=== PATIENT | male | born 1980 | race Two or more races ===

== ENCOUNTER 2024-10-30 03:48 | Inpatient (IN) | payer MEDICAID, SELFPAY ==
[2024-10-30] VITALS (11 sets, daily range): BP systolic 128–167; BP diastolic 71–100; PULSE 73–112; RESP 14–19; TEMP 36.2–37.1; O2SAT 92–98
--- NOTE | 2024-10-30 04:29 | XR_ITS ---
Examination: CT abdomen with intravenous contrast CT pelvis with intravenous contrast 2-D coronal reconstructions 2-D sagittal reconstructions Date and time of exam:October 30, 2024, 0535 hours INDICATIONS: Onset of rectal pain and tenderness beginning 2 days ago. CTDI: vol (mGy) 10.81 DLP: (mGycm) 803 Technique: Multiple axial sections of the abdomen and pelvis have been obtained. 64 slice high-resolution scanner used. 3 mm axial sections have been obtained, post intravenous injection 60 cc [id number] 2-D sagittal, coronal reconstructions obtained. Low dose protocols were performed. One or more of the following dose reduction techniques were used; automated exposure control, adjustment of the mA and/or KV according to patient size, use of iterative reconstruction technique. Findings: Diffuse fatty infiltration throughout the liver No focal liver or splenic lesions No gallstones No pancreatic or adrenal mass No renal or ureteral calculi, no hydronephrosis No pericecal inflammatory changes No bowel obstruction Bladder intact No prostatomegaly 24 x 20 x 27 mm midline anal abscess IMPRESSION: 24 x 20 x 27 mm midline perianal abscess
--- NOTE | 2024-10-30 04:29 | PD.EDRME ---
Rapid Medical Screening Exam RME Arrival date/time: 10/30/24 03:48 44M with no significant PMH presents to ED with several days of worsening rectal pain. No blood in stool. Chief Complaint: General Adult/Misc Complain Vital signs: Vital Signs Temperature 98.1 F 10/30/24 03:53 Pulse Rate 112 H 10/30/24 03:53 Respiratory Rate 18 10/30/24 03:53 Blood Pressure 167/79 H 10/30/24 03:53 Pulse Oximetry (%) 95 10/30/24 03:53
[2024-10-30 04:45] LABS: Lactate (Lactic Acid) 1.3 mMol/L (0.4-2.0)
[2024-10-30 04:49] LABS: Sed Rate (ESR) 16 mm/hr (0-15)
[2024-10-30 04:51] LABS: Basophils # (Auto) 0.0 Thou/mm3 (0.0-0.2); Basophils % (Auto) 0 % (0-2.5); Eosinophils # (Auto) 0.1 Thou/mm3 (0.0-0.5); Eosinophils % (Auto) 1 % (0-10); Hematocrit 39.1 % (41.0-53.0); Hemoglobin 13.6 g/dL (13.5-16.0); Immature Granulocytes Auto 0.02 Thou/mm3 (0.00-0.00); Lymphocytes # (Auto) 2.2 Thou/mm3 (1.0-4.8); Lymphocytes % (Auto) 22 % (10-50); Mean Corpuscular HGB Conc 34.8 g/dl (31.0-37.0); Mean Corpuscular Hemoglobin 28.8 pg (25.0-35.0); Mean Corpuscular Volume 83 fL (80-100); Monocytes # (Auto) 0.5 Thou/mm3 (0.0-0.8); Monocytes % (Auto) 5 % (0-12); Neutrophils # (Auto) 7.1 Thou/mm3 (1.8-7.7); Neutrophils % (Auto) 72 % (37-80); Nucleated Red Blood Cell # 0.00 Thou/mm3 (0.00-0.00); Nucleated Red Blood Cell % 0 /100 WBC (0); Platelet Count 242 Thou/mm3 (140-440); RDW Standard Deviation 42.4 fL (35.1-43.9); Red Blood Count 4.72 Miln/mm3 (4.50-5.90); White Blood Count 9.9 Thou/mm3 (3.8-10.6)
[2024-10-30 05:19] LABS: Alanine Aminotransferase 36 U/L (10-49); Albumin, Serum 4.6 gm/dL (3.5-5.0); Albumin/Globulin Ratio 1.8 (1.2-2.2); Alkaline Phosphatase 126 U/L (46-116); Anion Gap 12 (7-16); Aspartate Amino Transferase 29 U/L (0-34); BUN/Creatinine Ratio 11 Ratio (12-20); Bilirubin,Total 0.3 mg/dL (0.3-1.2); Blood Urea Nitrogen 10 mg/dL (9-23); C-Reactive Protein 1.6 mg/dL (0.0-0.9); Calcium 8.9 mg/dL (8.3-10.6); Calcium (Corrected) 8.9 mg/dL (8.5-10.1); Carbon Dioxide 23.0 mMol/L (20.0-31.0); Chloride 105 mMol/L (98-107); Creatinine (Component) 0.9 mg/dL (0.6-1.3); Globulin 2.6 gm/dL (2.3-3.5); Glucose 127 mg/dL (74-106); Osmolality,Calculated 280 (275-295); Potassium 3.7 mMol/L (3.4-5.1); Procalcitonin 0.04 ng/ml (0.0-0.49); Sodium 140 mMol/L (136-145); Total Protein 7.2 gm/dL (5.7-8.2); eGFR > 60 See Note
--- NOTE | 2024-10-30 06:02 | PRELIM_ITS ---
CT scan of the abdomen and pelvis with intravenous contrast (axial sections with sagittal and coronal reformats); October 30, 2024 at 0532 hours Clinical History: Rectal pain and tenderness Comparison: No prior study is available for comparison. Findings: The lung bases are clear. The liver, gallbladder, adrenal glands, spleen, pancreas and kidneys are unremarkable. The appendix is not visualized; however, there is no evidence of inflammatory process in the right lower quadrant to suggest appendicitis. The urinary bladder is normal. No free intraperitoneal air or fluid. Bowel caliber is normal. The abdominal wall is unremarkable. There is a posterior midline perianal fluid collection, measuring 2.5 x 2.0 x 4.2 cm. Impression: Perianal abscess. Discussion Details: Results verbally communicated to : Dr. Will at 05:53 AM 10/30/2024 Report Electronically Signed By: Eric Motta 10/30/2024 6:02:13 AM [EST]
[2024-10-30 06:46] LABS: Glucose Estimated Average 140 mg/dL (80-131); Hemoglobin A1C 6.5 % Hgb (4.8-6.0)
--- NOTE | 2024-10-30 07:16 | PD.EDADULT ---
ED General RME/HPI General Chief complaint: General Adult/Misc Complain Stated complaint: RECTAL PAIN Time Seen by Provider: 10/30/24 06:01 Arrival date/time: 10/30/24 03:48 44-year-old male with no significant medical problems presents to the emergency department today for complaint of a 2-day history of rectal pain which is worsening patient reports no blood in stool. Patient reports no fever nausea or vomiting. Limitations: no limitations RME / HPI RME / HPI narrative: 10/30/24 03:48 44M with no significant PMH presents to ED with several days of worsening rectal pain. No blood in stool. Review of Systems Review of Systems Systems Reviewed: All systems reviewed, normal except as documented Constitutional Constitutional: Reports system reviewed and no additional complaints, except as documented, Denies fever(s) and Denies headache(s) Eyes Eyes: Reports system reviewed and no additional complaints, except as documented and Denies blurry vision ENT Ears, Nose, Mouth, and Throat: Reports system reviewed and no additional complaints, except as documented, Denies headache(s), Denies nasal congestion and Denies nasal discharge Cardiovascular Cardiovascular: Reports system reviewed and no additional complaints, except as documented, Denies chest pain and Denies dyspnea Respiratory Respiratory: Reports system reviewed and no additional complaints, except as documented, Denies chest congestion, Denies cough and Denies dyspnea Gastrointestinal Gastrointestinal: Reports system reviewed and no additional complaints, except as documented, Denies abdominal pain and Reports other (Rectal pain) Integumentary/Breasts Skin/Breast: Reports system reviewed and no additional complaints, except as documented and Denies rash Neurologic Neurologic: Reports system reviewed and no additional complaints, except as documented, Reports as per HPI and Denies headache(s) Past Medical History Past Medical History CARDIAC: Positive Cardiac Disorders and Hypertension; Negative Congestive Heart Failure RESPIRATORY: Negative Chronic Obstructive Pulmonary Disease (COPD) or Asthma GENITOURINARY: Negative Renal Disease ENDOCRINE: Negative Diabetes Mellitus Type 1 or Diabetes Mellitus Type 2 HEMATOLOGIC: Negative Sickle Cell Disease Social History SMOKING STATUS: Never smoker ED Exam General Limitations: Present no limitations General appearance: Present alert and in no apparent distress Head Head exam: Present atraumatic, normocephalic and normal inspection Eye Eye exam: Present normal appearance, PERRL and EOMI; Absent conjunctival injection ENT ENT exam: Present normal exam, normal oropharynx and mucous membranes moist Neck Neck exam: Present normal inspection, full ROM and trachea midline Chest Chest inspection: Present normal inspection and symmetric chest wall rise Respiratory Respiratory exam: Present normal lung sounds bilaterally Cardiovascular Cardiovascular exam: Present regular rate, normal rhythm and normal heart sounds Abdominal Exam Abdominal exam: Present soft and normal bowel sounds; Absent distention, tenderness, guarding, rebound or rigidity Rectal Exam Rectal exam: Present normal inspection and tenderness; Absent heme (-) stool, heme (+) stool, black stool or hemorrhoids Extremities Exam Extremities exam: Present normal inspection and full ROM Back Exam Back exam: Present normal inspection and full ROM Neurological Exam Neurological exam: Present alert, oriented X3 and CN II-XII intact Psychiatric Psychiatric exam: Present normal affect and normal mood Skin Skin exam: Present warm, dry, intact and normal color Course Quality Measures none Orders Category Date Time Status CT Screening NOW Care 10/30/24 04:29 Active Insert IV NOW Care 10/30/24 04:29 Active NPO NOW Care 10/30/24 07:21 Active Consult to General Surgery Stat Cons 10/30/24 07:20 Ordered Diet NPO (NOW) Diet 10/30/24 07:[address] abdomen pelvis w con Stat Exams 10/30/24 04:29 Taken A1C [Glycohemoglobin w (eAG)] Stat Lab 10/30/24 04:35 Completed CBC Stat Lab 10/30/24 04:35 Completed CMP [Comprehensive Metabolic Panel] Stat Lab 10/30/24 04:35 Completed CRP [C-Reactive Protein] Stat Lab 10/30/24 04:35 Completed ESR [Sed Rate (ESR)] Stat Lab 10/30/24 04:35 Completed Lactate (Lactic Acid) Stat Lab 10/30/24 04:35 Completed Procalcitonin Stat Lab 10/30/24 04:35 Completed cefTRIAXone/D5w 1gm IV premix [Rocephin/D5w 1gm IV Med 10/30/24 07:20 Pending premix] 1 gm in 50 ml IV X1 metroNIDAZOLE/NS 500 MG IVPB [Flagyl 500 mg IV] Med 10/30/24 07:21 Pending 500 mg in 100 ml IV NOW Vital Signs Vital signs: Vital Signs Temperature 98.1 F 10/30/24 03:53 Pulse Rate 112 H 10/30/24 03:53 Respiratory Rate 18 10/30/24 03:53 Blood Pressure 167/79 H 10/30/24 03:53 Pulse Oximetry (%) 95 10/30/24 03:53 O2 saturation 95% room air within normal limits Discharge Plan Plan Patient Disposition: Admit Acute Care w/in Hospital Discharge Disposition comment: Stable Problem List Clinical Impression: Abscess, perianal, Pain, rectal Patient/Caregiver Discharge Instructions Print Language: [place] Stand Alone Forms: Joy Award Info., Patient Portal Info Letter PA/REVENUE DIRECTOR Supervising Physician PA/REVENUE DIRECTOR Supervising Physician: Dr ngo [facility] Narrative [facility] hospital course: 44-year-old male with no significant medical problems presents to the emergency department today for complaint of a 2-day history of rectal pain which is worsening patient reports no blood in stool. Patient reports no fever nausea or vomiting. On exam patient well-appearing patient does not appear ill or toxic no acute distress Imaging obtained CT scan shows posterior midline perianal fluid collection measuring 2.5 x 2.0 x 4.2 cm consistent with perianal abscess A1c mildly elevated 6.5 average blood sugar 140 Patient given IV medications Consultation: I spoke with my attending physician who feels the patient should be admitted Consultation: Spoke with general surgeon who states he will consult 0 7:30 AM spoke with hospitalist team patient admitted to the hospital with no distress Clinical Information Provided by patient Medical Records Reviewed None Meds/Rx Considered, not Ordered Describe details: Given Labs/Rad/Tests considered, not Ordered Describe details: Obtained Chronic Illness/Social Conditions which may negatively complicate care or outcome(s)-explain: None or not applicable EKG EKG not done Lab Interpretation Labs: interpreted by me Imaging Imaging interpretation: see narrative above Radiology reports / interpretation(s): Radiology report reviewed by me patient appears of abscess perianal 2.5 x 2.0 x 4.2 cm Medication Administration(s) Medication Administration History Ceftriaxone Sodium/Dextrose (Rocephin/D5w 1gm Iv Premix) 1 gm in 50 mls @ 100 mls/hr IV X1 ONE Stop: 10/30/24 07:49 Metronidazole (Flagyl 500 Mg Iv) 500 mg in 100 mls @ 200 mls/hr IV NOW ONE Stop: 10/30/24 07:50 Given Diagnosis Differential diagnosis: Perineal abscess Most likely dx, and/or detailed dx discussion: Renal abscess Dispositon Disposition: Admit
--- NOTE | 2024-10-30 09:45 | PC.NURSE ---
REPORT GIVEN TO DAHLIA GOMEZ ON MED SURG. PATIENT BELONGINGS COMPLETED, PATIENT TAKEN TO FLOOR VIA WHEELCHAIR.
[2024-10-30] MEDS: metroNIDAZOLE/NS 500 MG IVPB 500 MG/100 ML BAG 200 MG IV (11:07)
--- NOTE | 2024-10-30 12:17 | ESHP_ITS ---
Documentation for date of: 10/30/24 HPI History of Present Illness Chief complaint: Rectal pain for 2 days before admission History of present illness: HPI: A 44-year-old male patient with past medical history of hypertension on losartan, presented to the ED due to acute rectal pain for the past 2 days. He reported that the pain started as a mild pain however it continued to worsen over the past 2 days. His reported during that time he was very uncomfortable and was unable to sit still in 1 position. Despite the pain patient continued to work however his pain continued to worsen. He denied any constipation, difficulty defecating, fever or chills, and denied any bleeding per rectum. Patient has never had such symptoms in the past. Home medications: Losartan ED course: In the ED patient was found to have blood pressure of 167/79, pulse rate of 112, normal temperature. CBC was nonsignificant, ESR was elevated at 16, CMP showed potassium of 3.7, serum creatinine 0.1, blood glucose 127, lactic acid was 1.3, CRP 1.6, and A1c is 6.5. Patient was given metronidazole and ceftriaxone at the ED. General surgery was consulted and he recommended to admit the patient for surgery. PMH: As above Social hx: Alcohol: Denies Tobacco: Denied Illicit drugs: Denied Allergies: Penicillins Review of Systems Review of Systems Systems Reviewed: All systems reviewed, normal except as documented Exam Vital Signs Temp Pulse Resp BP Pulse Ox O2 Del Method 98.3 F 89 18 157/100 H 95 Room Air 10/30/24 12:00 10/30/24 12:00 10/30/24 12:00 10/30/24 12:00 10/30/24 12:00 10/30/24 12:00 Narrative Exam GEN: AOx3, able to speak full sentences HEENT: NC/AC, PERRLA, oral mucosa moist, neck supple CVS: RRR, S1-S2 present, no murmurs appreciated RESP: CTAB GI: soft,non distended, non tender, NBS MSK: able to move all 4 limbs, no lower extremity edema : Redness and tenderness on the posterior end of the range, no visible discharge, unable to assess fluctuation due to the pain. SKIN: warm and dry TRUST OPERATIONS ASSISTANT: CN II-XII and Sensation grossly intact. Results: Labs 10/30/24 04:35 10/30/24 04:35 Labs: Short CBC 10/30/24 Range/Units 04:35 WBC 9.9 (3.8-10.6) Thou/mm3 Hgb 13.6 (13.5-16.0) g/dL Hct 39.1 L (41.0-53.0) % Plt Count 242 (140-440) Thou/mm3 BMP 10/30/24 04:35 Sodium 140 Potassium 3.7 Chloride 105 Carbon Dioxide 23.0 BUN 10 Creatinine 0.9 Glucose 127 H Calcium 8.9 Liver Function 10/30/24 Range/Units 04:35 Total Bilirubin 0.3 (0.3-1.2) mg/dL AST 29 (0-34) U/L ALT 36 (10-49) U/L Alkaline Phosphatase 126 H (46-116) U/L Albumin 4.6 (3.5-5.0) gm/dL Quality Measures Quality Measures none Medications Home Medications and Allergies Home Medications ?Medication ?Instructions ?Recorded ?Confirmed ?Type losartan 25 mg tablet 25 mg PO QDAY 10/30/2410/30 History Allergies Allergy/AdvReac Type Severity Reaction Status Date / Time Penicillins Allergy Intermediate Rash Verified 10/30/24 08:59 Visit Medications Dextrose (Dextrose 50%-Water Inj 50 Ml Syringe) 25 ml IV Q15MIN PRN PRN Reason: BG 50-70 responsive npo pt Stop: 11/29/24 09:44 Dextrose (Dextrose 50%-Water Inj 50 Ml Syringe) 50 ml IV Q15MIN PRN PRN Reason: BG <50 OR BG <70 & pt unresponsive Stop: 11/29/24 09:44 Glucagon (Glucagon Inj 1 Mg Vial) 1 mg IM Q15MIN PRN PRN Reason: BG <70, and no IV access Acetaminophen (Ofirmev Inj) 1,000 mg in 100 mls @ 250 mls/hr IV Q6HR PRN PRN Reason: mild pain 1-3 Stop: 10/31/24 00:23 Insulin Human Lispro (Insulin Lispro (Admelog) 1 Unit/0.01 Ml Unit) 0 unit SC Q6HR [facility]; Protocol Stop: 11/29/24 09:44 Ketorolac Tromethamine (Ketorolac Inj 30 Mg/Ml Vial) 30 mg IVP Q6HR PRN PRN Reason: Pain 4-5 Morphine Sulfate (Morphine Sulf Inj 10 Mg/Ml Vial) 2 mg IVP Q4H PRN PRN Reason: Severe pain 6-10 Stop: 11/04/24 09:41 Discontinued Medications Ceftriaxone Sodium/Dextrose (Rocephin/D5w 1gm Iv Premix) 1 gm in 50 mls @ 100 mls/hr IV X1 ONE Stop: 10/30/24 10:14 Metronidazole (Flagyl 500 Mg Iv) 500 mg in 100 mls @ 200 mls/hr IV NOW ONE Stop: 10/30/24 10:29 Last Admin: 10/30/24 11:07 Dose: 200 mls/hr Acetaminophen (Ofirmev Inj) 1,000 mg in 100 mls @ 250 mls/hr IV Q6HR PRN PRN Reason: mild pain 1-4 Stop: 10/31/24 00:23 Assessment & Plan Plan Summary:A 44-year-old male patient with past medical history of hypertension on losartan, presented to the ED due to acute rectal pain for the past 2 days. He reported that the pain started as a mild pain however it continued to worsen over the past 2 days. Patient was admitted for rectal abscess drainage by neurosurgeon Dr. Key. #Rectal abscess Patient came with persistent rectal pain, progressive, over the past 2 days. On examination redness and tenderness in the posterior interval, ESR 16, WBC within normal limits, CRP was 1.6. CT scan of the abdomen and pelvis showed. 24 x 20 x 27 mm midline perianal abscess. Plan ? Admit patient to MedSurg ? N.p.o. for surgery ? Start patient on ceftriaxone 10/30? ?Neurosurgery recommended stop the patient on clindamycin 900 mg IV every 8 hours. ? Pain management as per protocol ? General Surgery was consulted, recommendations appreciated #Newly diagnosed diabetes mellitus Patient denies any history of diabetes mellitus, today's A1c was 6.5. Plan ? Will patient insulin sliding scale ? Hypoglycemia protocol in place ? Previously dietitian consultation for patient education. #History of hypertension Plan ? Resume home medication [id number] PO qday Hospital Maintenance: FEN: N.p.o. DVT ppx: SCDs GI ppx: Not indicated IV lines: PIV Neal: None Code status: Full code Dispo: MedSurg, anticipate discharge tomorrow - Patient's plan and care discussed with my attending, Dr. Liliane Dimas MD Internal Medicine PGY-3 Attending Provider Attestation/Addendum I have discussed and was present for the essential components of the history, physical examination, diagnosis, and treatment plan with the resident. I agree with the patient's care as documented by the resident and amended herein by me. Fran Momin, DO. Although this document has been carefully reviewed, there may still be some phonetic and other typographical errors. These errors are purely grammatical due to imperfections in the software program and should not be construed in any way to compromise the substance of the patient's medical care during this visit.
[2024-10-30] MEDS: cefTRIAXone/D5w 1gm IV premix 1 GM/50 ML BAG IV (13:36)
--- NOTE | 2024-10-30 14:16 | PD.SURCONS ---
HPI Consult details Consult date: 10/30/24 Reason for consultation narrative: Perirectal pain History of present illness: 44-year-old obese male history of hypertension presenting to the emergency department with history of rectal pain. The symptoms started about 3 days ago. He started noticing some pain in perirectal region that has been getting progressively worse over the past few days. He has also noted some swelling and erythema. He denies drainage or bleeding. He denies having similar symptoms in the past with no history of trauma. Review of Systems Constitutional Constitutional: Denies headache(s) ENT Ears, Nose, Mouth, and Throat: Denies headache(s) Cardiovascular Cardiovascular: Denies chest pain Respiratory Respiratory: Denies cough Gastrointestinal Gastrointestinal: Denies abdominal pain, Denies hematochezia, Denies nausea and Denies vomiting Genitourinary Genitourinary: Denies difficulty urinating Neurologic Neurologic: Denies headache(s) Hematologic/Lymphatic Hematologic/Lymphatic: Denies easy bleeding and Denies easy bruising Past Medical History Surgical History OTHER SURGICAL HX: Denies any surgeries in the past Social History SMOKING STATUS: Former smoker SUBSTANCE USE: does not use ALCOHOL: Current Meds Home Medications and Allergies Home Medications ?Medication ?Instructions ?Recorded ?Confirmed ?Type losartan 25 mg tablet 25 mg PO QDAY 10/30/24 10/30/24 History Allergies Allergy/AdvReac Type Severity Reaction Status Date / Time Penicillins Allergy Intermediate Rash Verified 10/30/24 08:59 Exam Vital Signs Temp Pulse Resp BP Pulse Ox O2 Del Method 98.3 F 89 18 157/100 H 95 Room Air 10/30/24 12:00 10/30/24 12:00 10/30/24 12:00 10/30/24 12:00 10/30/24 12:10/30/24 12:00 Constitutional Constitutional: no acute distress Routine Abdominal Exam Abdominal: Present soft and normoactive bowel sounds; Absent tenderness or distended Routine Rectal Exam Comments: Cellulitis with tenderness and fluctuance on the posterior aspect of anal verge, no bleeding or drainage at this time Results Results: Laboratory Laboratory results: results reviewed Results: Imaging CT scan - abdomen: report reviewed and image reviewed CT scan - pelvis: report reviewed and image reviewed Assessment & Plan Problem List (1) Abscess, perianal: Status: Acute Plan Will take patient to the operating room for incision and drainage of perirectal abscess. Risks include but not limited to infection, bleeding, injury to sphincter muscles, chronic nonhealing wound, possible developing anal fistula, need for further procedure and or operation, pneumonia and blood clot discussed with the patient via distribution agent. Benefits and alternatives explained to him, all his questions answered, he agreed and consented to proceed with the operation.
--- NOTE | 2024-10-30 15:14 | PD.SUROPNT ---
Date of Procedure 10/30/24 Pre Op Diagnosis Perirectal abscess Post Op Diagnosis Perirectal abscess Procedure Incision and drainage of perirectal abscess Findings Cellulitis with fluctuance over left posterior aspect of anal verge Procedure Description Patient brought into the operating room in supine position. After administration of general tracheal anesthesia, patient was placed in high lithotomy position. His perineal and perineum was prepped and draped in standard surgical manner. He was noted to have cellulitis with fluctuance on the left posterior aspect of anal verge. After administration of local anesthesia an approximately 1 cm cross-shaped incision was made and dissection was deepened soft tissue. Copious amount of purulent drainage encountered, cultures were obtained. The abscess cavity was evacuated. The cavity was then washed and irrigated with Betadine mixed with peroxide and saline and further washed with warm saline. Hemostasis achieved using electrocautery. The cavity was then packed with wet-to-dry dressings. Patient tolerated procedure well. He was placed in supine position and extubated. He was breathing spontaneously and without difficulty and was transferred to postanesthesia care in stable condition. Instruments, needles and sponge counts were reported to be correct x 2. Anesthesia GETA and local Pathology / specimen Other (Cultures from the abscess cavity) Estimated Blood Loss 10 Condition Stable Disposition PACU Surgeon David Chambers MD Surgical Staff Operation Date: 10/30/24 14:45 Case Staff JUNIOR SYSTEMS ANALYST: Jan Soler
--- NOTE | 2024-10-30 15:19 | SUR.PHASEI ---
received pt and report from DAHLIA Leach and FREDDY Hendricks. Pt slightly sedated, vss, dressing to perirectal left with min serosanguinous drainage noted to dressing. IV intact, no s/s of infiltration noted.
--- NOTE | 2024-10-30 15:47 | SUR.PHASEI ---
mod serousanguinous drainage noted to dressing to perirectal area left. pt tolerating ice chips
--- NOTE | 2024-10-30 15:56 | SUR.PHASEI ---
called and spoke to FREDDY Hendricks, BP elevated and at pt's baseline BP. no new orders received. Pt denies any pain or dizziness.,, report given to RN Tiffani
--- NOTE | 2024-10-30 16:00 | SUR.PHASEI ---
report called to soniya Orosco, dressing remains the same
[2024-10-30] MEDS: CLINDAMYCIN 900MG IVPB 900 MG in PRE-MIXED 1 BAG 50 MG IV ×2 (17:06→21:23)
[2024-10-30] MEDS: ZINC SULFATE 220 MG CAPSULE PO (17:13)
[2024-10-30] MEDS: LOSARTAN POTASSIUM 25 MG TABLET PO (18:03)
--- NOTE | 2024-10-30 18:13 | PC.DIETICIAN ---
Dietitian note: Contour Next Ez glucometer was provided. Pt will need Rx order prior to discharge. Thank you
[2024-10-30] MEDS: DOCUSATE SOD 100 MG CAPSULE PO (20:08)
[2024-10-30] MEDS: ASCORBIC ACID 250 MG TABLET 500 MG PO (20:08)
[2024-10-31] VITALS (9 sets, daily range): BP systolic 114–143; BP diastolic 68–82; PULSE 63–88; RESP 15–98; TEMP 36.3–36.5; O2SAT 94–99
[2024-10-31] MEDS: KETOROLAC INJ 30 MG/ML VIAL IVP ×2 (02:38→11:46)
[2024-10-31] MEDS: CLINDAMYCIN 900MG IVPB 900 MG in PRE-MIXED 1 BAG 50 MG IV ×3 (05:10→21:22)
[2024-10-31 06:19] LABS: Basophils # (Auto) 0.0 Thou/mm3 (0.0-0.2); Basophils % (Auto) 0 % (0-2.5); Eosinophils # (Auto) 0.2 Thou/mm3 (0.0-0.5); Eosinophils % (Auto) 2 % (0-10); Hematocrit 36.2 % (41.0-53.0); Hemoglobin 12.1 g/dL (13.5-16.0); Immature Granulocytes Auto 0.02 Thou/mm3 (0.00-0.00); Lymphocytes # (Auto) 2.2 Thou/mm3 (1.0-4.8); Lymphocytes % (Auto) 27 % (10-50); Mean Corpuscular HGB Conc 33.4 g/dl (31.0-37.0); Mean Corpuscular Hemoglobin 28.3 pg (25.0-35.0); Mean Corpuscular Volume 85 fL (80-100); Monocytes # (Auto) 0.5 Thou/mm3 (0.0-0.8); Monocytes % (Auto) 6 % (0-12); Neutrophils # (Auto) 5.3 Thou/mm3 (1.8-7.7); Neutrophils % (Auto) 65 % (37-80); Nucleated Red Blood Cell # 0.00 Thou/mm3 (0.00-0.00); Nucleated Red Blood Cell % 0 /100 WBC (0); Platelet Count 205 Thou/mm3 (140-440); RDW Standard Deviation 43.9 fL (35.1-43.9); Red Blood Count 4.27 Miln/mm3 (4.50-5.90); White Blood Count 8.3 Thou/mm3 (3.8-10.6)
[2024-10-31 07:10] LABS: Alanine Aminotransferase 29 U/L (10-49); Albumin, Serum 3.8 gm/dL (3.5-5.0); Albumin/Globulin Ratio 1.7 (1.2-2.2); Alkaline Phosphatase 139 U/L (46-116); Anion Gap 10 (7-16); Aspartate Amino Transferase 16 U/L (0-34); BUN/Creatinine Ratio 12 Ratio (12-20); Bilirubin,Total 0.4 mg/dL (0.3-1.2); Blood Urea Nitrogen 11 mg/dL (9-23); Calcium 8.5 mg/dL (8.3-10.6); Calcium (Corrected) 8.7 mg/dL (8.5-10.1); Carbon Dioxide 26.2 mMol/L (20.0-31.0); Chloride 105 mMol/L (98-107); Creatinine (Component) 0.9 mg/dL (0.6-1.3); Globulin 2.3 gm/dL (2.3-3.5); Glucose 100 mg/dL (74-106); Magnesium 2.0 mg/dL (1.6-2.6); Osmolality,Calculated 280 (275-295); Phosphorous 2.8 mg/dL (2.4-5.1); Potassium 4.5 mMol/L (3.4-5.1); Sodium 141 mMol/L (136-145); Total Protein 6.1 gm/dL (5.7-8.2); eGFR > 60 See Note
[2024-10-31] MEDS: ZINC SULFATE 220 MG CAPSULE PO (08:58)
[2024-10-31] MEDS: DOCUSATE SOD 100 MG CAPSULE PO ×2 (08:58→21:22)
[2024-10-31] MEDS: LOSARTAN POTASSIUM 25 MG TABLET PO (08:58)
[2024-10-31] MEDS: cefTRIAXone/D5w 1gm IV premix 1 GM/50 ML BAG IV (08:58)
[2024-10-31] MEDS: ASCORBIC ACID 250 MG TABLET 500 MG PO ×2 (08:58→21:22)
--- NOTE | 2024-10-31 11:38 | PD.SURPROG ---
Documentation for date of: 10/31/24 Subjective Subjective Narrative: Patient is seen and examined. His pain is improving Exam Vital Signs Temp Pulse Resp BP Pulse Ox O2 Del Method O2 Flow Rate 97.6 F 78 18 130/82 97 Room Air 2 10/31/24 08:00 10/31/24 08:58 10/31/24 08:57 10/31/24 08:58 10/31/24 08:00 10/31/24 08:00 10/31/24 04:00 Constitutional Constitutional: no acute distress Routine Rectal Exam Comments: Still has some cellulitis. Packing is removed, he has minimal bleeding still has some purulent drainage Assessment & Plan Assessment Additional comments: Postop day #1 status post I&D of perirectal abscess Plan Continue IV antibiotics for additional 24 hours. Wound care as directed. Possible discharge home tomorrow PROCEDURES: Procedures Incision and drainage of perirectal abscess
--- NOTE | 2024-10-31 14:26 | PD.RESPRO ---
Documentation for date of: 10/31/24 Subjective Subjective Interval history: Patient was seen and examined at bedside. I&D performed yesterday by Dr Chambers. Patient still complains of mild tenderness however he reported significant improvement of his symptoms. No fever over night, abscess culture still pending. Spoke with general surgeon Dr Chambers mentioned that the patient still has mild boody drainage, however anticipated DC tomorrow if improving. Exam Vital Signs Temp Pulse Resp BP Pulse Ox O2 Del Method O2 Flow Rate 97.6 F 78 18 142/68 H 94 L Humidified Nasal Cannula 2 10/31/24 11:48 10/31/24 11:48 10/31/24 11:48 10/31/24 11:48 10/31/24 11:48 10/31/24 11:48 10/31/24 04:00 Narrative Exam GEN: AOx3, able to speak full sentences HEENT: NC/AC, PERRLA, oral mucosa moist, neck supple CVS: RRR, S1-S2 present, no murmurs appreciated RESP: CTAB GI: soft,non distended, non tender, NBS MSK: able to move all 4 limbs, no lower extremity edema : Deferred SKIN: warm and dry MAINTENANCE PARTS TECHNICIAN: CN II-XII and Sensation grossly intact. Objective Labs 10/31/24 04:51 10/31/24 04:51 Labs: Laboratory Results - last 24 hr 10/31/24 04:51 WBC 8.3 RBC 4.27 L Hgb 12.1 L Hct 36.2 L MCV 85 MCH 28.3 MCHC 33.4 RDW Std Deviation 43.9 Plt Count 205 D Neut % (Auto) 65 Lymph % (Auto) 27 Brown % (Auto) 6 Eos % (Auto) 2 Baso % (Auto) 0 Neut # (Auto) 5.3 Lymph # (Auto) 2.2 Brown # (Auto) 0.5 Eos # (Auto) 0.2 Baso # (Auto) 0.0 Immature Gran # (Auto) 0.02 H Absolute Nucleated RBC 0.00 Immature Gran % 0 Nucleated RBC % 0 Sodium 141 Potassium 4.5 D Chloride 105 Carbon Dioxide 26.2 Anion Gap 10 BUN 11 Creatinine 0.9 Estim Creat Clear Calc Not Performed. eGFR > 60 BUN/Creatinine Ratio 12 Glucose 100 Calculated Osmolality 280 Calcium 8.5 Corrected Calcium 8.7 Phosphorus 2.8 Magnesium 2.0 Total Bilirubin 0.4 AST 16 ALT 29 Alkaline Phosphatase 139 H Total Protein 6.1 Albumin 3.8 D Globulin 2.3 Albumin/Globulin Ratio 1.7 Quality Measures Quality Measures none Assessment & Plan Assessment Current Active Medications: Generic Name Dose Route Start Last Admin Trade Name Freq PRN Reason Stop Dose Admin Hydrocodone Bitart/Acetaminophen 1 tab 10/30/24 16:23 Hydrocodone/Apap 5/325 Tablet PO 11/04/24 16:22 Q6HR PRN PAIN SCALE 7-10 (Severe) Ascorbic Acid 500 mg 10/30/24 21:00 10/31/24 08:58 Ascorbic Acid 250 Mg Tablet PO 11/29/24 20:59 500 mg BID EDIL Administration Dextrose 25 ml 10/30/24 09:45 Dextrose 50%-Water Inj 50 Ml Syringe IV 11/29/24 09:44 Q15MIN PRN BG 50-70 responsive npo pt Dextrose 50 ml 10/30/24 09:45 Dextrose 50%-Water Inj 50 Ml Syringe IV 11/29/24 09:44 Q15MIN PRN BG <50 OR BG <70 & pt unresponsive Docusate Sodium 100 mg 10/30/24 21:00 10/31/24 08:58 Docusate Sod 100 Mg Capsule PO 11/29/24 20:59 100 mg BID EDIL Administration Protocol Glucagon 1 mg 10/30/24 09:45 Glucagon Inj 1 Mg Vial IM Q15MIN PRN BG <70, and no IV access Ceftriaxone Sodium/Dextrose 1 gm in 50 mls @ 100 mls/hr 10/30/24 13:03 10/31/24 08:58 Rocephin/D5w 1gm Iv Premix IV 11/06/24 13:02 100 mls/hr QDAY EDIL Administration Clindamycin Phosphate 900 mg/ 50 mls @ 50 mls/hr 10/30/24 16:23 10/31/24 14:22 IV Miscellaneous Supplies IV 11/06/24 16:22 50 mls/hr Q8HR EDIL Administration Insulin Human Lispro 0 unit 10/30/24 17:00 10/31/24 12:13 Insulin Lispro (Admelog) 1 Unit/0.01 Ml Unit SC 11/29/24 16:59 Not Given ACHS EDIL Protocol Losartan Potassium 25 mg 10/30/24 17:45 10/31/24 08:58 Losartan Potassium 25 Mg Tablet PO 11/29/24 17:44 25 mg QDAY EDIL Administration Morphine Sulfate 2 mg 10/30/24 09:42 Morphine Sulf Inj 10 Mg/Ml Vial IVP 11/04/24 09:41 Q4H PRN Severe pain 6-10 Protocol Zinc Sulfate 220 mg 10/30/24 16:23 10/31/24 08:58 Zinc Sulfate 220 Mg Capsule PO 11/29/24 16:22 220 mg QDAY EDIL Administration Plan Summary:A 44-year-old male patient with past medical history of hypertension on losartan, presented to the ED due to acute rectal pain for the past 2 days. He reported that the pain started as a mild pain however it continued to worsen over the past 2 days. Patient was admitted for rectal abscess drainage by neurosurgeon Dr. Key. #Rectal abscessm s/p I&D POD day 1 Patient came with persistent rectal pain, progressive, over the past 2 days. On examination redness and tenderness in the posterior interval, ESR 16, WBC within normal limits, CRP was 1.6. CT scan of the abdomen and pelvis showed. 24 x 20 x 27 mm midline perianal abscess. I&D performed yesterday by Dr Chambers, abscess culture still pending. Plan ? Continue patient on ceftriaxone 10/30? ?Neurosurgery recommended stop the patient on clindamycin 900 mg IV every 8 hours. ? Pain management as per protocol ? General Surgery was consulted, recommendations appreciated #Newly diagnosed diabetes mellitus Patient denies any history of diabetes mellitus, today's A1c was 6.5. Plan ? patient insulin sliding scale ? Hypoglycemia protocol in place ? Previously dietitian consultation for patient education. #History of hypertension Plan ? Resume home medication [id number] PO qday Hospital Maintenance: FEN: Soft diet DVT ppx: SCDs GI ppx: Not indicated IV lines: PIV Neal: None Code status: Full code Dispo: MedSurg, anticipate discharge tomorrow - Patient's plan and care discussed with my attending, Dr. Liliane Dimas MD Internal Medicine PGY-3 Attending Provider Attestation/Addendum I have discussed and was present for the essential components of the history, physical examination, diagnosis, and treatment plan with the resident. I agree with the patient's care as documented by the resident and amended herein by me. Fran Momin DO. Although this document has been carefully reviewed, there may still be some phonetic and other typographical errors. These errors are purely grammatical due to imperfections in the software program and should not be construed in any way to compromise the substance of the patient's medical care during this visit.
--- NOTE | 2024-10-31 16:06 | PC.SS ---
Angelito Collins is a [age]year-old male admitted to [place] for Rectal Abscess. SS conducted bedside contact with the patient to complete initial assessment and to discuss discharge planning. Role and reason explained. Patient confirmed demographic information. Patient identifies his Loraine Franz [phone] as his surrogate decision maker. Pt states he is able to complete all ADL?s independent. Pt does not possesses any DME. Pts PCP is Angela Donis. Pharmacy of choice is [facility] in [facility]. Discharge options discussed and the pt wishes to return home.? Pt will provide transport. No further intervention required at this time, social organization professor would be available to address any further concerns. DC Plan: Home Contact: Loraine Address: Confirmed on face sheet PCP: [facility]
--- NOTE | 2024-10-31 16:07 | PC.SS ---
Rounding: Pending RASHIDA reccs, DC 11/01
[2024-11-01] VITALS (8 sets, daily range): BP systolic 120–156; BP diastolic 82–105; PULSE 59–75; RESP 16–98; TEMP 36.2–36.4; O2SAT 92–96
[2024-11-01] MEDS: HYDROcodone/APAP 5/325 TABLET 1 TAB PO (05:18)
[2024-11-01] MEDS: CLINDAMYCIN 900MG IVPB 900 MG in PRE-MIXED 1 BAG 50 MG IV ×2 (05:18→14:16)
[2024-11-01 06:45] LABS: Basophils # (Auto) 0.1 Thou/mm3 (0.0-0.2); Basophils % (Auto) 1 % (0-2.5); Eosinophils # (Auto) 0.2 Thou/mm3 (0.0-0.5); Eosinophils % (Auto) 3 % (0-10); Hematocrit 38.9 % (41.0-53.0); Hemoglobin 13.2 g/dL (13.5-16.0); Immature Granulocytes Auto 0.02 Thou/mm3 (0.00-0.00); Lymphocytes # (Auto) 2.4 Thou/mm3 (1.0-4.8); Lymphocytes % (Auto) 36 % (10-50); Mean Corpuscular HGB Conc 33.9 g/dl (31.0-37.0); Mean Corpuscular Hemoglobin 28.8 pg (25.0-35.0); Mean Corpuscular Volume 85 fL (80-100); Monocytes # (Auto) 0.4 Thou/mm3 (0.0-0.8); Monocytes % (Auto) 7 % (0-12); Neutrophils # (Auto) 3.6 Thou/mm3 (1.8-7.7); Neutrophils % (Auto) 53 % (37-80); Nucleated Red Blood Cell # 0.00 Thou/mm3 (0.00-0.00); Nucleated Red Blood Cell % 0 /100 WBC (0); Platelet Count 223 Thou/mm3 (140-440); RDW Standard Deviation 43.8 fL (35.1-43.9); Red Blood Count 4.59 Miln/mm3 (4.50-5.90); White Blood Count 6.7 Thou/mm3 (3.8-10.6)
[2024-11-01 07:04] LABS: Alanine Aminotransferase 24 U/L (10-49); Albumin, Serum 4.0 gm/dL (3.5-5.0); Albumin/Globulin Ratio 1.7 (1.2-2.2); Alkaline Phosphatase 107 U/L (46-116); Anion Gap 9 (7-16); Aspartate Amino Transferase 20 U/L (0-34); BUN/Creatinine Ratio 18 Ratio (12-20); Bilirubin,Total 0.3 mg/dL (0.3-1.2); Blood Urea Nitrogen 14 mg/dL (9-23); Calcium 8.6 mg/dL (8.3-10.6); Calcium (Corrected) 8.6 mg/dL (8.5-10.1); Carbon Dioxide 26.6 mMol/L (20.0-31.0); Chloride 105 mMol/L (98-107); Creatinine (Component) 0.8 mg/dL (0.6-1.3); Globulin 2.3 gm/dL (2.3-3.5); Glucose 108 mg/dL (74-106); Magnesium 1.7 mg/dL (1.6-2.6); Osmolality,Calculated 282 (275-295); Phosphorous 2.9 mg/dL (2.4-5.1); Potassium 4.0 mMol/L (3.4-5.1); Sodium 141 mMol/L (136-145); Total Protein 6.3 gm/dL (5.7-8.2); eGFR > 60 See Note
[2024-11-01] MEDS: DOCUSATE SOD 100 MG CAPSULE PO (08:36)
[2024-11-01] MEDS: ZINC SULFATE 220 MG CAPSULE PO (08:36)
[2024-11-01] MEDS: LOSARTAN POTASSIUM 25 MG TABLET PO (08:36)
[2024-11-01] MEDS: ASCORBIC ACID 250 MG TABLET 500 MG PO (08:36)
[2024-11-01] MEDS: cefTRIAXone/D5w 1gm IV premix 1 GM/50 ML BAG IV (08:37)
--- NOTE | 2024-11-01 11:17 | PD.SURPROG ---
Documentation for date of: 11/01/24 Subjective Subjective Narrative: Patient is seen and examined. His pain is improving Exam Vital Signs Temp Pulse Resp BP Pulse Ox O2 Del Method O2 Flow Rate 97.1 F 59 L 18 148/82 H 96 Room Air 2 11/01/24 08:00 11/01/24 08:36 11/01/24 08:00 11/01/24 08:36 11/01/24 08:00 11/01/24 08:00 10/31/24 04:00 Constitutional Constitutional: no acute distress Routine Rectal Exam Comments: Significant improvement of cellulitis. Very minimal drainage from the wound Assessment & Plan Assessment Additional comments: Postop day #2 status post I&D of perirectal abscess Plan May discharge home on oral antibiotics for 7 days. Wound care as directed and follow-up with Dr Chambers in 2 weeks PROCEDURES: Procedures Incision and drainage of perirectal abscess
--- NOTE | 2024-11-01 16:19 | ESDS_ITS ---
Planned Discharge Date 11/01/24 DS: Providers Provider Date of admission: 10/31/24 14:16 Primary care physician: Haylee Franz Admitting Provider: Demario Momin DO Attending Provider on Admission: Demario Momin DO Consults: 10/30/24 07:20 Consult to General Surgery Stat Comment: Consulting Provider: David Chambers 10/30/24 11:25 [facility] Referral - Knowledge Deficit Routine Comment: Positive screening for knowledge deficit needs. [facility] Referral - Transportation Routine Comment: Positive screening for transportation needs. 10/30/24 13:04 Referral Registered Dietitian Urgent Comment: new DM Attending Provider on DC: Rod Dimas MD Discharging Provider: Rod Dimas MD DS: Diagnosis Problem List Completed Was Problem List Reviewed/Reconciled?: Yes Hospital Course Hospital Course Hospital course: 44-year-old male patient with past medical history of hypertension losartan, newly diagnosed type 2 diabetes mellitus, presented to the ED due to acute rectal pain for 2 days before admission. The pain was continuous in nature with no change in bowel habitus. CT scan was done and showed midline perianal abscess measuring 24 x 20 x 27 mm. Patient was started on ceftriaxone and clindamycin. Consultation to the general surgeon Dr. Chambers was done, he recommended incision and drainage. Incision and drainage was performed on 30 October 2024, blood loss was estimated to be 10 mL, sample was sent for culture and sensitivity. Patient tolerated the procedure well, dressing at bedside and monitoring for 1 day after the procedure revealed no acute complications. However, on evaluation patient was noticed to have A1c level of 6.5. Patient denied any history of diabetes mellitus. For that reason patient was started on insulin sliding scale during his stay and will be discharged on metformin to follow-up in outpatient settings. Today patient deemed to be clinically stable for discharge and was given the following instructions: Discharge instructions: Follow up with your primary care physician within one week from discharge You were found to have new onset diabetes melitus ( high blood sugar ), follow up with your primary care doctor within one week from discharge We started you on metformin 1000mg orally twice a day to help controlling your blood sugar. Instructions from the general surgeon Dr Chambers: Packed the wound with half-inch packing strip and covered with dry dressings daily. May remove dressings and shower regularly. Follow-up with Dr Chambers in 2 weeks, please call [phone] for an appointment. Discharging diagnosis #Penile abscess status post I&D #Newly diagnosed diabetes mellitus #History of hypertension - Patient's plan and care discussed with my attending, Dr. Liliane Dimas MD Internal Medicine PGY-3 Status at Discharge Functional status at discharge: independent ambulation Overall status at discharge: patient is progressing back to baseline Time Spent with Patient Time attestation: Total time spent providing and/or coordinating discharge services: Time spent: Greater than 30 minutes Exam Vital Signs Temp Pulse Resp BP Pulse Ox O2 Del Method O2 Flow Rate 97.4 F 68 18 120/97 H 92 L Room Air 2 11/01/24 16:00 11/01/24 16:00 11/01/24 16:00 11/01/24 16:11/01/24 16:00 11/01/24 16:00 10/31/24 04:00 Narrative Exam GEN: AOx3, able to speak full sentences HEENT: NC/AC, PERRLA, oral mucosa moist, neck supple CVS: RRR, S1-S2 present, no murmurs appreciated RESP: CTAB GI: soft,non distended, non tender, NBS MSK: able to move all 4 limbs, no lower extremity edema SKIN: warm and dry SCREENING SPECIALIST: CN II-XII and Sensation grossly intact. Discharge Plan Plan Patient Disposition: HOME (Self Care) Patient condition on transfer: Stable and Benefits outweigh risks Care Plan Goals: Instrucciones para el spike: Consulte con mata m?dico de cabecera en el plazo de deepti semana tras el spike. Se le detect? diabetes mellitus de reciente aparici?n (nivel alto de az?car en wan). Consulte con mata m?dico de cabecera en el plazo de deepti semana tras el spike. Iniciamos el tratamiento con metformina 1000 mg por v?a oral dos veces al d?a para ayudarle a controlar mata nivel de az?car en wan. Instrucciones del cirujano general, Dr. Chambers: Se tap? la herida con deepti johanny de 1,25 cm y se cubri? con ap?sitos secos a diario. Puede retirar los ap?sitos y ducharse regularmente. Consulte con el Dr. Chambers en dos semanas; llame al [phone] para programar deepti serafin. Discharge instructions: Follow up with your primary care physician within one week from discharge You were found to have new onset diabetes melitus ( high blood sugar ), follow up with your primary care doctor within one week from discharge We started you on metformin 1000mg orally twice a day to help controlling your blood sugar. Instructions from the general surgeon Dr Chambers: Packed the wound with half-inch packing strip and covered with dry dressings daily. May remove dressings and shower regularly. Follow-up with Dr Chambers in 2 weeks, please call [phone] for an appointment. Prescriptions/Referrals Prescriptions/Med Rec: New metformin 1,000 mg tablet 1,000 mg PO BID Qty: 14 0RF hydrocodone-acetaminophen 5-325 mg Tablet 1 tab PO Q6HR MDD 4 PRN (Reason: PAIN SCALE 7-10 (Severe)) Qty: 10 0RF ascorbic acid (vitamin C) [Vitamin C] 250 mg Tablet 500 mg PO BID Qty: 60 0RF zinc sulfate 50 mg zinc (220 mg) Capsule 220 mg PO QDAY Qty: 30 0RF clindamycin HCl 300 mg capsule 300 mg PO TID Qty: 21 0RF Continued losartan 25 mg tablet 25 mg PO QDAY Referrals: David Chambers MD [Physician] - Haylee Franz [Primary Care Provider] - Patient/Caregiver Discharge Instructions Discharge Activity: activity as tolerated Education Materials: Preventing Surgical Site Infections, Understanding Perianal Abscess, ED ABSCESS Rosa-Anal Abx only, ED ABSCESS Rosa-Anal IandD Print Language: Sinhala Stand Alone Forms: Joy Award Info., Patient Portal Info Letter, Work/Release Restrictions Discharge Order Discharge Orders: Discharge (Routine); Ordered 11/01/24 Ordered By: Leticia Knott Quality Discharge Quality Measures VTE prophylaxis Attestestation Attestation I have discussed and was present for the essential components of the discharge history, physical examination, diagnosis, and discharge treatment plan with the resident. I agree with the patient's discharge care as documented by the resident and amended herein by me. Fran Momin DO. The patient understood all discharge instructions, all questions were answered satisfactorily. The patient was instructed to return to the Emergency Department is symptoms worsened or persisted. Patient discharged on a short course of clindamycin per surgery recommendations, advised to follow-up with surgeon, Dr. Chambers in 2 weeks of discharge, see resident note above for additional details. Although this document has been carefully reviewed, there may still be some phonetic and other typographical errors. These errors are purely grammatical due to imperfections in the software program and should not be construed in any way to compromise the substance of the patient's medical care during this visit.
--- NOTE | 2024-11-01 16:25 | PC.SS ---
rounding note: patient to be d/c today home
== END 2024-11-01 16:19 | disposition home or self-care (01) | DRG 254 ==
LOC: SERX 08:27 → SERHOLD 08:34 → S3SX 09:59
PROVIDERS: Physician Assistant; Surgery; Admitting Provider Student in an Organized Health Care Education/Training Program; Emergency Provider Emergency Medicine; Visit Provider Student in an Organized Health Care Education/Training Program
DX: K61.2 Anorectal abscess (principal); I10 Essential (primary) hypertension; E11.9 Type 2 diabetes mellitus without complications; Z87.891 Personal history of nicotine dependence
CPT/HCPCS: 36415; 74177; 80053; 83036; 83605; 83735; 84100; 84145; 85025; 85652; 86140; 87070; 87075; 87077; 87186; 87205; 93225; 96374; 99284; A4217; A4649; G0378; J0696; J1885; J2250; J2704; J3010; J3490; Q9967; S0077; A9270; J0736; J1836